=== PATIENT | female | born 1985 | race African-American/Black ===

== ENCOUNTER 2017-04-11 18:29 | Emergency (ER) | payer MEDICAID ==
[~2017-04-11] VITALS: Ht 147.3 cm; Wt 53.2 kg
[~2017-04-11 18:29] MED LIST: AMITRIPTYLINE H10 M1 PO; ATROPINE EYE OP; ATROPINE OP; CEFTIN250 M1 PO; CEFZIL250 MG PO; COLACE 100100 MG/CAP PO; ELAVIL50 MG PO; EXJADE PO; EXJADE125 MG PO; EYE OP; INDERAL 20MG20 MG PO; LORTAB 5/500 501 TAB; MIRALAX 17GM PK1 PKT PO; MIRALAX PA17 GM/Dose PO; MOTRIN600 MG PO; PEN-VEE K250 MG PO; SENOKOT8.6 MG PO; [UNRECOGNIZED DRUG - OTHER]; [UNRECOGNIZED DRUG - OTHER] PO
[2017-04-11 18:32] VITALS: TEMP 99
[2017-04-11] MEDS ORDERED: ELIQUIS 5MG PO (20:21)
[2017-04-11 21:08] LABS: COLLECTION METHOD CLEAN CATCH
[2017-04-11 21:13] LABS: MUCOUS Present /lpf; PH 5 (5-8); SQUAMOUS EPITHELIAL 0-2 /hpf; URINE APPEARANCE Clear; URINE BACTERIA None Seen /hpf; URINE BILIRUBIN Negative (NEGATIVE); URINE BLOOD 1+ (NEGATIVE); URINE COLOR Yellow; URINE GLUCOSE Negative (NEGATIVE); URINE KETONE Trace (NEGATIVE); URINE LEUKOCYTE ESTERASE Negative (NEGATIVE); URINE PROTEIN(semi-quant) 1+ (NEGATIVE); URINE RBC 0-2 /hpf; URINE UROBILINOGEN Negative (NEGATIVE); URINE WBC 0-2 /hpf
[2017-04-11 23:28] LABS: BASO # 0.1 (0.0-0.2); BASO % 1.2 % (0.0-2.0); EOS % 0.3 % (0-4.0); GRAN # 2.7 (1.4-6.5); GRAN % 45.9 % (42.2-75.2); LYMPH # 2.4 (1.2-3.4); LYMPH % 39.8 % (20.0-51.0); MEAN CELL VOLUME 89 fl (80.0-100.0); MEAN CORPUSCULAR HGB CONC 35 g/dl (33.0-37.0); MEAN PLATELET VOLUME 9.3 fl (7.4-10.4); MONO # 0.7 (0.1-0.6); MONO % 12.5 % (1.7-9.3); PLATELET COUNT 381 K/mm3 (130-400); RED BLOOD COUNT 2.88 M/mm3 (4.10-5.30); RETIC % 11.1 % (0.5-3.52); WHITE BLOOD COUNT 5.9 K/mm3 (4.8-10.8)
[2017-04-11 23:31] LABS: HEMATOCRIT 25.6 % (37.0-47.0); MEAN CORPUSCULAR HEMOGLOBIN 31 pg (27.0-31.0)
[2017-04-11 23:43] LABS: ADJUSTED CALCIUM 8.4 mg/dL (8.4-10.2); ALBUMIN 4.7 gm/dL (3.5-5.0); BILIRUBIN,TOTAL 2.7 mg/dL (0.0-1.0); CREATININE, serum 0.41 mg/dL (0.52-1.25); POTASSIUM 3.4 mmol/L (3.4-5.0); TOTAL PROTEIN 8.5 gm/dL (6.4-8.2)
[2017-04-11] MEDS ORDERED: AMOXICILLIN875 MG PO (23:48)
[2017-04-12 00:17] VITALS: BP 114/70; PULSE 87
== END 2017-04-12 00:17 | disposition home or self-care (01) ==
LOC: COL.ER 18:29
PROVIDERS: Emergency Medicine
DX: J02.9 Acute pharyngitis, unspecified (principal); D57.1 Sickle-cell disease without crisis; Z90.49 Acquired absence of other specified parts of digestive tract; Z97.0 Presence of artificial eye; Z86.73 Personal history of transient ischemic attack (TIA), and cerebral infarction without residual deficits
CPT/HCPCS: J0696; J2765; J7030